=== PATIENT | female | born 1950 | race Caucasian/White ===

== ENCOUNTER → 2017-01-22 | Outpatient (CLI) | payer OTHER ==
[~2017-01-22] MED LIST: ALPHA LIPOIC AC50 MG PO; ANTIBIOTIC; CALTRATE-600 W1 EACH PO; CARISOPRODOL 3350 MG PO; CARVEDILOL12.5 MG; CENTRUM SILVER1 EAC1 PO; CO Q-1010 MG PO; DARVOCET-N 1001 EACH PO; FISHOIL PO; GLUCOSAMINE-CH1 EA32 PO; HERBALIFE PO; LEVAQUIN 500 M500 MG PO; LISINOPRIL5 MG PO; MOBIC7.5 MG PO; NEURONTIN 300300 M1; NORCO 5-325 TA1 EACH PO; PENICILLIN VK500 MG PO; VENTOLIN17 GM INH
== END ==
LOC: RAD 11:26
DX: Z12.31 Encounter for screening mammogram for malignant neoplasm of breast (principal)

== ENCOUNTER → 2017-09-10 | Outpatient (CLI) | payer OTHER | LOC: CAT 15:37 | DX: R31.9 Hematuria, unspecified (principal); M47.895 Other spondylosis, thoracolumbar region; M41.86 Other forms of scoliosis, lumbar region ==

== ENCOUNTER → 2018-02-13 | Outpatient (CLI) | payer OTHER | LOC: GI 01-10 09:58 → EDSTATUS 01-10 10:06 → RAD 01:20 | DX: Z12.31 Encounter for screening mammogram for malignant neoplasm of breast (principal) ==

== ENCOUNTER → 2019-03-05 | Outpatient (CLI) | payer OTHER | LOC: RAD 02:00 | DX: Z12.31 Encounter for screening mammogram for malignant neoplasm of breast (principal) ==

== ENCOUNTER → 2020-04-05 | Outpatient (CLI) | payer OTHER | LOC: RAD 03-15 13:45 | PROVIDERS: ATTEND Nurse Practitioner | DX: Z12.31 Encounter for screening mammogram for malignant neoplasm of breast (principal) ==

== ENCOUNTER → 2020-07-26 | Outpatient (CLI) | payer OTHER | LOC: ULTRA 10:05 | PROVIDERS: ATTEND Nurse Practitioner | DX: M71.22 Synovial cyst of popliteal space [Baker], left knee (principal) ==

== ENCOUNTER → 2021-02-21 | Outpatient (CLI) | payer OTHER | LOC: SJCVC 13:00 | PROVIDERS: ATTEND Internal Medicine | DX: R94.31 Abnormal electrocardiogram [ECG] [EKG] (principal); I42.7 Cardiomyopathy due to drug and external agent; T50.905A Adverse effect of unspecified drugs, medicaments and biological substances, initial encounter; C82.90 Follicular lymphoma, unspecified, unspecified site; E78.5 Hyperlipidemia, unspecified; I13.0 Hypertensive heart and chronic kidney disease with heart failure and stage 1 through stage 4 chronic kidney disease, or unspecified chronic kidney disease; I50.22 Chronic systolic (congestive) heart failure; N18.2 Chronic kidney disease, stage 2 (mild); G61.0 Guillain-Barre syndrome; I25.10 Atherosclerotic heart disease of native coronary artery without angina pectoris; M17.0 Bilateral primary osteoarthritis of knee; Z79.82 Long term (current) use of aspirin; Z79.899 Other long term (current) drug therapy; Z87.891 Personal history of nicotine dependence; Z82.49 Family history of ischemic heart disease and other diseases of the circulatory system; Y92.89 Other specified places as the place of occurrence of the external cause ==

== ENCOUNTER → 2021-04-06 | Outpatient (CLI) | payer OTHER | LOC: BC 13:14 | PROVIDERS: ATTEND Nurse Practitioner | DX: Z12.31 Encounter for screening mammogram for malignant neoplasm of breast (principal); N63.41 Unspecified lump in right breast, subareolar ==

== ENCOUNTER → 2021-04-12 | Outpatient (CLI) | payer OTHER | LOC: ULTRA 14:29 | PROVIDERS: ATTEND Nurse Practitioner | DX: N63.10 Unspecified lump in the right breast, unspecified quadrant (principal) ==

== ENCOUNTER → 2021-09-12 | Outpatient (CLI) | payer OTHER | LOC: SJCVCIMAG 08-31 09:21 | PROVIDERS: ATTEND Internal Medicine | DX: I08.0 Rheumatic disorders of both mitral and aortic valves (principal); I44.7 Left bundle-branch block, unspecified; I42.7 Cardiomyopathy due to drug and external agent; C82.80 Other types of follicular lymphoma, unspecified site; E78.5 Hyperlipidemia, unspecified; G61.0 Guillain-Barre syndrome; I25.10 Atherosclerotic heart disease of native coronary artery without angina pectoris; I12.9 Hypertensive chronic kidney disease with stage 1 through stage 4 chronic kidney disease, or unspecified chronic kidney disease; N18.2 Chronic kidney disease, stage 2 (mild); F17.200 Nicotine dependence, unspecified, uncomplicated; Z72.89 Other problems related to lifestyle; Z82.49 Family history of ischemic heart disease and other diseases of the circulatory system; Z79.899 Other long term (current) drug therapy ==